=== PATIENT | female | born 1950 | race Caucasian/White ===

== ENCOUNTER 2018-05-31 18:57 | Emergency (ER) | payer MEDICARE, BC ==
[2018-05-31] MEDS ORDERED: cefTRIAXone 1 GM, Lidocaine 1% 2.1 ML IM ONE ×2 (19:33)
--- NOTE | 2018-05-31 19:38 | EDM.PDOC ---
ED HPI GENERAL MEDICAL PROBLEM - General Chief Complaint: Bite:Animal, Insect Stated Complaint: INFECTION RT HAND Time Seen by Provider: 05/31/18 19:38 Source of Information: Reports: Patient History Limitations: Reports: No Limitations - History of Present Illness INITIAL COMMENTS - FREE TEXT/NARRATIVE: pt was bite by her own cat yesterday and today her hand looks red in a area 3 inches in diameter around the bite. She has not been soaking it. Onset: Gradual Duration: Hour(s): Location: Reports: Upper Extremity, Right Associated Symptoms: Reports: No Other Symptoms right hand Pain Score (Numeric/FACES): 1 - Related Data Allergies Allergy/AdvReac Type Severity Reaction Status Date / Time adhesive tape Allergy Blisters Verified 05/31/18 19:19 codeine Allergy Change Verified 05/31/18 19:19 Mental Status suture Allergy Swelling Verified 05/31/18 19:19 Home Meds: Home Meds Albuterol [Ventolin HFA] 1 - 2 inh INH ASDIRECTED PRN 05/31/18 [History] Insulin Glargine,Hum.Rec.Anlog [Toupercyo Solostjulio cesar] 44 units SUBCUT BEDTIME [History] Rosuvastatin Calcium 5 mg PO DAILY 05/31/18 [History] SitaGLIPtin [Januvia] 100 mg PO DAILY 05/31/18 [History] ED ROS GENERAL - Review of Systems Review Of Systems: See Below Constitutional: Reports: No Symptoms HEENT: Reports: No Symptoms Respiratory: Reports: No Symptoms Cardiovascular: Reports: No Symptoms Endocrine: Reports: No Symptoms GI/Abdominal: Reports: No Symptoms : Reports: No Symptoms Musculoskeletal: Reports: Other ( cat bite on the rt hand which is red around the site It did have some purulent drainage. ) Skin: Reports: No Symptoms ED EXAM, ANIMAL BITE - Physical Exam Exam: See Below Text/Narrative:: Pt has a cat bite on her rt hand / It is now red and swollen. Exam Limited By: No Limitations General Appearance: Alert, Mild Distress Ears: Normal TMs Nose: Normal Inspection Throat/Mouth: Normal Inspection Head: Atraumatic Neck: Normal Inspection Respiratory/Chest: No Respiratory Distress Cardiovascular: Regular Rate, Rhythm GI/Abdominal: Soft Extremities: Increased Warmth, Redness, Other (pt has a cat bite on the rt hand) Neurological: Alert, Oriented, Normal Cognition Psychiatric: Normal Affect Course - Vital Signs Last Recorded V/S: Last Vital Signs Temp 37.5 C 05/31/18 19:43 Pulse 108 H 05/31/18 19:43 Resp 18 05/31/18 19:43 BP 161/85 H 05/31/18 19:43 Pulse Ox 95 05/31/18 19:43 - Orders/Labs/Meds Meds: Medications Discontinued Medications Generic Name Dose Route Start Last Admin Trade Name Ai PRN Reason Stop Dose Admin Bacitracin 1 dose 05/31/18 19:43 Bacitracin Oint 1 Gm TOP 05/31/18 19:44 ONETIME ONE Ceftriaxone Sodium 1 gm/ 0 gm 05/31/18 19:33 Lidocaine HCl 2.1 ml IM 05/31/18 19:34 ONETIME ONE Departure - Departure Time of Disposition: 19:40 Disposition: Home, Self-Care 01 Condition: Fair Clinical Impression: Infected cat bite - Discharge Information Referrals: Estella Ospina PA [Primary Care Provider] - Forms: ED Department Discharge Care Plan Goals: soak hand bid in soapy solution, apply bacatracin and cover, augmentin 875 bid, use probiotic and yogurt right from the beginning. rtc if not improving.
[2018-05-31] MEDS ORDERED: Bacitracin Oint 1 GM U/D Packet TOP ONE (19:43)
== END 2018-05-31 20:23 | disposition home or self-care (01) ==
LOC: JP.ED 18:57
DX: S61.451A Open bite of right hand, initial encounter (principal); L08.9 Local infection of the skin and subcutaneous tissue, unspecified; Z88.5 Allergy status to narcotic agent; Z91.09 Other allergy status, other than to drugs and biological substances; W55.01XA Bitten by cat, initial encounter
CPT/HCPCS: 96372; 99283; J0696

== ENCOUNTER 2022-11-20 09:47 | Emergency (ER) | payer MEDICARE ==
[2022-11-20 11:04] LABS: CORONAVIRUS COVID-19 NAA NEGATIVE (NEGATIVE)
== END 2022-11-20 10:54 | disposition home or self-care (01) ==
LOC: JP.ED 09:47
DX: M47.22 Other spondylosis with radiculopathy, cervical region (principal); M43.6 Torticollis; E11.9 Type 2 diabetes mellitus without complications; F17.210 Nicotine dependence, cigarettes, uncomplicated; I10 Essential (primary) hypertension; Z91.048 Other nonmedicinal substance allergy status; Z88.5 Allergy status to narcotic agent; Z20.822 Contact with and (suspected) exposure to COVID-19
CPT/HCPCS: 0241U; 99283

== ENCOUNTER 2022-12-20 04:30 | Emergency (ER) | payer MEDICARE ==
[2022-12-20] MEDS ORDERED: Ondansetron 4 MG Tab.DIS PO ONE (04:51)
== END 2022-12-20 07:35 | disposition home or self-care (01) ==
LOC: JP.ED 04:30
DX: K52.9 Noninfective gastroenteritis and colitis, unspecified (principal); E78.00 Pure hypercholesterolemia, unspecified; I10 Essential (primary) hypertension; E11.9 Type 2 diabetes mellitus without complications; Z91.048 Other nonmedicinal substance allergy status; Z88.5 Allergy status to narcotic agent; Z79.82 Long term (current) use of aspirin; Z79.899 Other long term (current) drug therapy; Z20.822 Contact with and (suspected) exposure to COVID-19
CPT/HCPCS: 36415; 80048; 85025; 99284; Q0162; U0002

== ENCOUNTER 2025-02-05 04:57 | Emergency (ER) | payer MEDICARE ==
[2025-02-05 06:03] LABS: BASOPHILS ABSOLUTE AUTO 0.04 K/uL (0.00-0.10); BASOPHILS PERCENT AUTO 0.5 % (0.1-1.3); EOSINOPHILS ABSOLUTE AUTO 0.14 K/uL (0.00-0.40); EOSINOPHILS PERCENT AUTO 1.7 % (0.0-5.4); HEMATOCRIT 40.5 % (34.3-46.0); HEMOGLOBIN 13.5 g/dL (11.2-15.5); IMMATURE GRAN ABSOLUTE AUTO 0.03 K/uL (0.00-0.23); IMMATURE GRAN PERCENT AUTO 0.4 % (0.0-0.7); LYMPHOCYTES PERCENT AUTO 25.2 % (11.4-47.7); MEAN CORPUSCULAR HEMOGLOBIN 29.7 pg (31.6-35.5); MEAN CORPUSCULAR HGB CONC 33.3 g/dL (31.6-35.5); MEAN CORPUSCULAR VOLUME 89.2 fL (81.4-99.0); MONOCYTES ABSOLUTE AUTO 0.66 K/uL (0.20-0.90); MONOCYTES PERCENT AUTO 7.9 % (3.3-12.6); NEUTROPHILS ABSOLUTE AUTO 5.37 K/uL (1.0-7.6); NEUTROPHILS PERCENT AUTO 64.3 % (40.0-78.1); PLATELET COUNT,PLT 145 K/uL (130-375); RED BLOOD CELL COUNT 4.54 M/uL (3.77-5.24); WHITE BLOOD CELL COUNT,WBC 8.3 K/uL (3.2-11.0)
[2025-02-05 06:21] LABS: APPEARANCE,URINE SLIGHTLY CLOUDY (CLEAR); BILIRUBIN,URINE NEGATIVE (NEGATIVE); COLOR,URINE YELLOW (YELLOW); GLUCOSE,URINE 500 mg/dL (NEGATIVE); KETONES,URINE NEGATIVE (NEGATIVE); LEUKOCYTE ESTERASE,URINE NEGATIVE (NEGATIVE); NITRITE,URINE NEGATIVE (NEGATIVE); OCCULT BLOOD,URINE NEGATIVE (NEGATIVE); PH,URINE 5.5 (5.0-8.0); PROTEIN,URINE TRACE mg/dL (NEGATIVE); UROBILINOGEN,URINE 0.2 EU/dL (0.2-1.0)
[2025-02-05 06:30] LABS: AMORPHOUS SEDIMENT,URINE FEW; BACTERIA,URINE FEW; EPITHELIAL CELLS,URINE RARE; MUCUS,URINE NOT SEEN; RBC,URINE 0-5 (0-5); WBC,URINE 0-5 (0-5)
[2025-02-05 06:35] LABS: A/G RATIO 0.8 (1.2-2.2); ALANINE AMINOTRANSFERASE,ALT 17 U/L (12-78); ALBUMIN 2.7 g/dL (3.4-5.0); ALKALINE PHOSPHATASE 52 U/L (46-116); ANION GAP 7.7 mmol/L (5.0-14.0); ASPARTATE AMNIOTRANSFERASE,AST 16 U/L (15-37); BILIRUBIN TOTAL 0.4 mg/dL (0.2-1.0); BLOOD UREA NITROGEN,BUN 18 mg/dL (7-18); CARBON DIOXIDE,CO2 26 mmol/L (21-32); CHLORIDE,CL 108 mmol/L (100-108); CREATININE 1.2 mg/dL (0.6-1.0); EST CRCL DRUG DOSING (CG) 37.34 mL/min; ESTIMATED GFR 47 mL/min (>60); GLUCOSE RANDOM 265 mg/dL (74-106); POTASSIUM,K 3.8 mmol/L (3.6-5.2); SODIUM,NA 142 mmol/L (140-148)
[2025-02-05] MEDS: Sodium Chloride 0.9% 1,000 ML IV SCH (07:07)
[2025-02-05] MEDS: LORazepam 2 MG/ML SDV IM ONE (11:15)
[2025-02-05] MEDS: droPERidol 5 MG/2 ML SDV IM ONE (11:15)
[2025-02-05] MEDS ORDERED: GLIPIZIDE 10 MG PO SCH (16:15)
[2025-02-05] MEDS ORDERED: Non-Formulary Medication 1 Each (Insulin Glargine,Hum.Rec.Anlog [Toujeo Solostar] 300 UNIT SQ SCH (16:15)
[2025-02-05] MEDS ORDERED: LORazepam 2 MG/ML SDV IM PRN (16:49)
[2025-02-05] MEDS: OLANZapine 10 MG Vial IM ONE (16:55)
[2025-02-05 18:59] LABS: APPEARANCE,URINE CLEAR (CLEAR); BILIRUBIN,URINE NEGATIVE (NEGATIVE); COLOR,URINE YELLOW (YELLOW); GLUCOSE,URINE 100 mg/dL (NEGATIVE); KETONES,URINE NEGATIVE (NEGATIVE); LEUKOCYTE ESTERASE,URINE NEGATIVE (NEGATIVE); NITRITE,URINE NEGATIVE (NEGATIVE); OCCULT BLOOD,URINE NEGATIVE (NEGATIVE); PH,URINE 5.5 (5.0-8.0); PROTEIN,URINE NEGATIVE (NEGATIVE); UROBILINOGEN,URINE 0.2 EU/dL (0.2-1.0)
[2025-02-05] MEDS: INSULIN GLARGINE 300 UNIT/ML SUBCUT SCH (20:49)
[2025-02-05] MEDS: Glucagon,Human Recombinant 1 MG Vial IM ONE (21:11)
[2025-02-06] MEDS: GLIPIZIDE 10 MG PO SCH (10:23)
[2025-02-06] MEDS: OLANZapine 10 MG Vial IM ONE (11:49)
[2025-02-06] MEDS: OLANZapine 10 MG Vial ONE (11:49)
== END 2025-02-06 13:52 | disposition other institution (70) ==
LOC: JP.ED 04:57
DX: F03.B11 Unspecified dementia, moderate, with agitation (principal); E11.9 Type 2 diabetes mellitus without complications; Z79.4 Long term (current) use of insulin; Z91.048 Other nonmedicinal substance allergy status; Z88.8 Allergy status to other drugs, medicaments and biological substances; Z88.5 Allergy status to narcotic agent
CPT/HCPCS: 36415; 70450; 80053; 80307; 81001; 81003; 82947; 83605; 84443; 84484; 85025; 87428; 93005; 96360; 96372; 99285; J1610; J1790; J2060; J2359; J7030; 93010; 99284

== ENCOUNTER 2025-03-29 17:32 | Emergency (ER) | payer MEDICARE ==
[2025-03-29 18:22] LABS: APPEARANCE,URINE CLEAR (CLEAR); BILIRUBIN,URINE NEGATIVE (NEGATIVE); COLOR,URINE YELLOW (YELLOW); GLUCOSE,URINE 500 mg/dL (NEGATIVE); KETONES,URINE NEGATIVE (NEGATIVE); LEUKOCYTE ESTERASE,URINE NEGATIVE (NEGATIVE); NITRITE,URINE NEGATIVE (NEGATIVE); OCCULT BLOOD,URINE NEGATIVE (NEGATIVE); PROTEIN,URINE NEGATIVE (NEGATIVE)
[2025-03-29 18:30] LABS: AMORPHOUS SEDIMENT,URINE NOT SEEN; BACTERIA,URINE RARE; EPITHELIAL CELLS,URINE FEW; MUCUS,URINE RARE; RBC,URINE 0-5 (0-5); WBC,URINE 0-5 (0-5)
== END 2025-03-29 19:43 ==
LOC: JP.ED 17:32
DX: F03.B11 Unspecified dementia, moderate, with agitation (principal); E11.9 Type 2 diabetes mellitus without complications; Z88.5 Allergy status to narcotic agent; Z88.8 Allergy status to other drugs, medicaments and biological substances; Z91.048 Other nonmedicinal substance allergy status; Z79.4 Long term (current) use of insulin; Z79.899 Other long term (current) drug therapy; Z90.710 Acquired absence of both cervix and uterus
CPT/HCPCS: 81001; 99284

== ENCOUNTER 2025-04-01 13:25 | Emergency (ER) | payer MEDICARE ==
[2025-04-01 14:01] LABS: BASOPHILS ABSOLUTE AUTO 0.06 K/uL (0.00-0.10); BASOPHILS PERCENT AUTO 0.8 % (0.1-1.3); EOSINOPHILS ABSOLUTE AUTO 0.33 K/uL (0.00-0.40); EOSINOPHILS PERCENT AUTO 4.4 % (0.0-5.4); HEMATOCRIT 40.4 % (34.3-46.0); HEMOGLOBIN 13.1 g/dL (11.2-15.5); IMMATURE GRAN PERCENT AUTO 0.3 % (0.0-0.7); LYMPHOCYTES ABSOLUTE AUTO 2.03 K/uL (0.8-3.3); LYMPHOCYTES PERCENT AUTO 26.8 % (11.4-47.7); MEAN CORPUSCULAR HEMOGLOBIN 29.6 pg (31.6-35.5); MEAN CORPUSCULAR HGB CONC 32.4 g/dL (31.6-35.5); MEAN CORPUSCULAR VOLUME 91.4 fL (81.4-99.0); MONOCYTES ABSOLUTE AUTO 0.86 K/uL (0.20-0.90); MONOCYTES PERCENT AUTO 11.4 % (3.3-12.6); NEUTROPHILS ABSOLUTE AUTO 4.27 K/uL (1.0-7.6); NEUTROPHILS PERCENT AUTO 56.3 % (40.0-78.1); PLATELET COUNT,PLT 174 K/uL (130-375); RED BLOOD CELL COUNT 4.42 M/uL (3.77-5.24); WHITE BLOOD CELL COUNT,WBC 7.6 K/uL (3.2-11.0)
[2025-04-01 14:03] LABS: IMMATURE GRAN ABSOLUTE AUTO 0.02 K/uL (0.00-0.23)
[2025-04-01 14:30] LABS: A/G RATIO 0.7 (1.2-2.2); ALANINE AMINOTRANSFERASE,ALT 30 U/L (12-78); ALBUMIN 2.8 g/dL (3.4-5.0); ALKALINE PHOSPHATASE 67 U/L (46-116); ASPARTATE AMNIOTRANSFERASE,AST 25 U/L (15-37); BILIRUBIN TOTAL 0.5 mg/dL (0.2-1.0); BLOOD UREA NITROGEN,BUN 20 mg/dL (7-18); CALCIUM 9.1 mg/dL (8.5-10.1); CARBON DIOXIDE,CO2 25 mmol/L (21-32); CHLORIDE,CL 106 mmol/L (100-108); CREATININE 1.2 mg/dL (0.6-1.0); EST CRCL DRUG DOSING (CG) 28.65 mL/min; ESTIMATED GFR 47 mL/min (>60); GLUCOSE RANDOM 236 mg/dL (74-106); MAGNESIUM 1.9 mg/dL (1.8-2.4); POTASSIUM,K 4.3 mmol/L (3.6-5.2); PROTEIN TOTAL,TP 6.7 g/dL (6.4-8.2); SODIUM,NA 142 mmol/L (140-148); TSH ULTRASENSITIVE 1.187 uIU/mL (0.358-3.740)
[2025-04-01 15:56] LABS: APPEARANCE,URINE CLEAR (CLEAR); BILIRUBIN,URINE NEGATIVE (NEGATIVE); COLOR,URINE YELLOW (YELLOW); GLUCOSE,URINE 500 mg/dL (NEGATIVE); KETONES,URINE 15 mg/dL (NEGATIVE); LEUKOCYTE ESTERASE,URINE NEGATIVE (NEGATIVE); NITRITE,URINE NEGATIVE (NEGATIVE); OCCULT BLOOD,URINE NEGATIVE (NEGATIVE); PROTEIN,URINE NEGATIVE (NEGATIVE)
[2025-04-01 16:05] LABS: AMORPHOUS SEDIMENT,URINE NOT SEEN; BACTERIA,URINE FEW; EPITHELIAL CELLS,URINE FEW; MUCUS,URINE RARE; RBC,URINE 0-5 (0-5); WBC,URINE 0-5 (0-5)
[2025-04-01] MEDS: LORazepam 2 MG/ML SDV IM PRN (17:34)
[2025-04-01] MEDS: OLANZapine 5 MG Tab PO ONE (18:26)
== END 2025-04-01 19:40 ==
LOC: JP.ED 13:25
DX: F03.B2 Unspecified dementia, moderate, with psychotic disturbance (principal); E78.00 Pure hypercholesterolemia, unspecified; E11.9 Type 2 diabetes mellitus without complications; Z88.5 Allergy status to narcotic agent; Z91.048 Other nonmedicinal substance allergy status; Z79.4 Long term (current) use of insulin; Z79.899 Other long term (current) drug therapy
CPT/HCPCS: 36415; 71045; 71045-26; 80053; 80164; 81001; 83735; 84443; 85025; 96372; 99285; A9270-GY; J2060; U0002